=== PATIENT | female | born 1980 | race Caucasian/White ===

== ENCOUNTER 2021-01-14 12:07 | Outpatient (CLI) | payer OTHER ==
--- NOTE | 2021-01-14 12:29 | XRAY Report ---
PROCEDURE: Wrist 3 View RT INDICATIONS: RIGHT WRIST PAIN TECHNIQUE: 3 views of the wrist were acquired. COMPARISON: None. FINDINGS: BONES: No acute, displaced fracture or dislocation. The carpal bones are normally aligned. SOFT TISSUES: No focal abnormality. IMPRESSION: 1.No acute osseous abnormality. Reviewed by: Peña Peralta MD on 01/14/2021 12:27 PM PDT Approved by: Peña Peralta MD on 01/14/2021 12:27 PM PDT Station ID: [id number]
== END 2021-01-14 23:59 ==
LOC: DI.N 12:07
PROVIDERS: ATTEND Family Medicine
DX: M25.531 Pain in right wrist (principal)

== ENCOUNTER 2021-04-15 14:30 | Outpatient (CLI) | payer OTHER ==
--- NOTE | 2021-04-15 15:31 | XRAY Report ---
PROCEDURE: Lumbar Spine 2 View INDICATIONS: CHRONIC LOW BACK PAIN TECHNIQUE: 3 views of the lumbar spine were acquired. COMPARISON: None. FINDINGS: L-SPINE: No acute displaced fracture. Grade 1 anterolisthesis at L4-5. The vertebral body heights are maintained. The disc space heights are maintained. Facet arthrosis, most prominent at L5-S1. The sacroiliac joints appear patent. SOFT TISSUES: No focal abnormality. IMPRESSION: 1.No acute osseous abnormality of the lumbar spine. Reviewed by: Peña Peralta MD on 04/15/2021 3:30 PM [facility] Approved by: Peña Peralta MD on 04/15/2021 3:30 PM [facility] Station ID: [id number]
--- NOTE | 2021-04-15 15:48 | XRAY Report ---
PROCEDURE: Hips 2V BILAT INDICATIONS: BILATERAL HIP PAIN TECHNIQUE: Lateral views of the bilateral hips were acquired. AP view of the pelvis. COMPARISON: None. FINDINGS: BONES/JOINTS: No acute, displaced fracture. No widening of the pubic symphysis. The sacroiliac joints are symmetric. The femoral heads are normal ly seated within the acetabulum. SOFT TISSUES: No focal abnormality. IMPRESSION: 1.No acute osseous abnormality. Reviewed by: Peña Peralta MD on 04/15/2021 3:47 PM [facility] Approved by: Peña Peralta MD on 04/15/2021 3:47 PM [facility] Station ID: [id number]
== END 2021-04-15 14:31 | disposition home or self-care (01) ==
LOC: DI.N 14:30
PROVIDERS: ATTEND Physician Assistant Medical
DX: M25.551 Pain in right hip (principal); M25.552 Pain in left hip; M54.50 Low back pain, unspecified; G89.29 Other chronic pain

== ENCOUNTER 2021-09-21 20:15 | Outpatient (CLI) | payer OTHER ==
--- NOTE | 2021-09-22 08:45 | XRAY Report ---
PROCEDURE: Wrist 3 View LT INDICATIONS: PAIN IN LEFT WRIST TECHNIQUE: 3 views of the wrist were acquired. COMPARISON: None FINDINGS: Bones: No fractures or dislocations. No suspicious bony lesions. Soft tissues: No suspicious soft tissue calcifications. IMPRESSION: Normal left wrist Reviewed by: Rogelio Patino on 09/22/2021 8:44 AM PDT Approved by: Rogelio Patino on 09/22/2021 8:44 AM PDT Station ID: [id number]
== END 2021-09-21 20:16 | disposition home or self-care (01) ==
LOC: DI 20:15
PROVIDERS: ATTEND Nurse Practitioner
DX: M25.532 Pain in left wrist (principal)